=== PATIENT | male | born 1945 | race Caucasian/White ===

== ENCOUNTER 2022-01-25 07:44 | Day surgery (SDC) | payer MEDICARE, OTHER ==
[~2022-01-25] VITALS: Ht 188 cm; Wt 96.2 kg
[~2022-01-25 07:44] MED LIST: ACETAMINOPHEN-118 M1 PO; ACETAMINOPHEN325 M1 PO; ADVAIR HFA 230-12 GM INH; ASPIRIN EC81 MG PO; CLARITIN10 M2 PO; FLOVENT DISKU100 MCG INH; FLUTICASONE PRO16 GM NS; LOVASTATIN40 MG PO; NORCO 5-325 TA1 EACH PO; PRAVACHOL40 MG PO; SINGULAIR10 MG PO; VENTOLIN HFA18 GM; VITAMIN C500 MG PO; VITAMIN D32000 UNIT PO
[2022-01-25] MEDS ORDERED: SYMBICORT 16010.2 GM INH (08:15)
[2022-01-25] MEDS ORDERED: FLONASE SENSIM5.9 ML NAS (08:16)
--- NOTE | 2022-01-25 09:58 | NUR ---
01/25/22 0958 Elsy Anthony 0953- PT TO PACU IN LL POSITION. EYES CLOSED. DOES NOT RESPOND TO VERBAL OR TACTILE STIMULI. BREATHING EASY AND UNLABORED. SPO2 >95% ON 3 L O2 VIA NC. 0957- PT RESPONDS TO VERBAL AND TACTILE STIMULI. OPENS EYES AND FALLS QUICKLY BACK TO SLEEP. BRETHING EASY AND UNLABORED. SPO2 >95% ON 3 L O2 VIA NC.
--- NOTE | 2022-01-25 11:15 | NUR ---
1100: PT BACK TO DS RM 8 FROM PACU DROWSY. PT WAKES WITH VERBAL STIMULATION AND MOVEMENT OF STRETCHER FROM PACU TO DS. PT DENIES NAUSEA, TOLERATES WATER. PT DENIES PAIN. PT HAS URGE TO VOID AND SITS AT SIDE OF BED WITH RN ASSIST. PT STATES, "I AM PRETTY DIZZY AND LIGHTHEADED" AND URINAL IS PROVIDED, PT ENCOURAGED TO SIT WHILE VOIDING WITH RN ASSIST. PT LAYS BACK DOWN, CONT PULSE OXIMETER PLACED AND PT QUICKLY FALLS BACK TO SLEEP. CALL LIGHT WITHIN REACH.
--- NOTE | 2022-01-25 12:06 | NUR ---
PATIENT ASSESSMENT COMPLETE. PATIENT IS STILL DROWSY. BREATHING EQUAL AND UNLABORED. OXYGEN SATURATIONS AND RR WNL ON ROOM AIR. PATIENT DENIES ANY PAIN, NASEAU OR SHORTNESS OF BREATH. SURGICAL SITE CLEAN DRY AND INTACT. IV SITE PATENT. NO QUESTIONS AT THIS TIME. CALL LIGHT WITHIN REACH NO FUTHER NEEDS.
--- NOTE | 2022-01-25 14:33 | NUR ---
1235: THIS RN TRANSPORTS PT FROM DS RM 8 VIA WC TO WAITING IN PERSONAL VEHICLE AT MAIN HOSPITAL ENTRANCE TO HOME.
--- NOTE | 2022-01-26 06:36 | OR ---
[facility] [address], [place] [address] Signed DATE OF OPERATION: 01/25/2022 SURGEON: Gina Lees MD PREOPERATIVE DIAGNOSES: 1. Personal history of colonic polyps in 2016. 2. Tattoo at 8 cm. POSTOPERATIVE DIAGNOSES: 1. Long redundant tortuous colon. 2. Tattoo at 8 cm. PROCEDURE: Colonoscopy biopsy. ESTIMATED BLOOD LOSS: None. 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 He has even helped raise six of his 12 grand children. He still has one grandchild still living at the house. He underwent a negative barium enema back in 1994 at [facility]. He had a negative colonoscopy in [address] Celestino Parrish. I did his colonoscopy in 2005 and he had a benign biopsy of his very prominent ileocecal valve. He did well with Versed and fentanyl. I helped him in 2015 with a colonoscopy and removed three adenomatous polyps and two hyperplastic polyps. We left a tattoo at 8 cm in the right posterior aspect of the rectum. He did well with 10 mg of Versed and 200 mcg of fentanyl at that time. He said he cannot recall the test. However, he did have nausea and vomiting afterwards. Therefore, we decided to give him Zofran and Phenergan preoperatively today. We had asked him to follow up in three years. However, the COVID pandemic took over and he now is just coming back. He does have asthma and he just finished his prednisone and said he is feeling great. He has no lower GI complaints. There is no family history of colon cancer or polyps. I had met with Gisselle in the office and I gave him a pamphlet on colonoscopy. He remembers the test well. There is risk including, but not limited to gas bloating, crampy abdominal pain, bleeding, perforation requiring surgery, and missed diagnosis. He also recalls the need for the IV conscious sedation. He said his would be able to take him home. PROCEDURE NOTE: Electronically Signed By: GINA LEES MD 01/26/22 0636 PATIENT NAME: GISSELLE PHAM OPERATIVE REPORT DATE OF : 41 REPORT #: [id number] PHYSICIAN: GINA LEES MD PCP: IRINEO ACOSTA MD REPORT IS CONFIDENTIAL AND NOT TO BE RELEASED WITHOUT AUTHORIZATION [facility] [address], [place] [address] Signed Gisselle was taken into our endoscopy suite and placed in the left lateral decubitus position. He was given 8 mg of Zofran and 12.5 mg of Phenergan before the procedure. He was given a total of 200 mcg of fentanyl and 10 mg of Versed once again. A digital rectal exam was performed. His prostate gland appears to be absent. He does have a history of prostate cancer and was treated at [place] in [place]. The adult colonoscope had been introduced and advanced through a long tortuous redundant colon. His prep was quite excellent. We could easily see the appendiceal orifice and the ileocecal valve. He has a very prominent circular ileocecal valve. We biopsied that previously and it was negative. The scope had been slowly withdrawn. We found no polyps or diverticulosis throughout the entire colon. The rectum was unremarkable. We did see previous polypectomy sites. We found his tattoo at 8 cm. We looked that area over very carefully. It seems to be quite unremarkable. The scope was then retroflexed in the rectum and there was no additional pathology noted above the anal canal. After this, the gas was suctioned out and the colonoscope removed. Gisselle tolerated the procedure quite well. RECOMMENDATIONS: Gisselle can follow up in 5 years for repeat colonoscopy. He may or may not need propofol infusion in the future, particularly as he is getting older. He was quite somnolent today with the addition of that Phenergan. Gina Lees MD ALB/MODL /[id number] cc: MD Gina Ferrari MD Copies: IRINEO ACOSTA MD, ANDREW L MD ~ Electronically Signed By: GINA LEES MD 01/26/22 0636 PATIENT NAME: GISSELLE PHAM OPERATIVE REPORT DATE OF : 41 REPORT #: [id number] PHYSICIAN: GINA LEES MD PCP: IRINEO ACOSTA MD REPORT IS CONFIDENTIAL AND NOT TO BE RELEASED WITHOUT AUTHORIZATION
== END 2022-01-25 12:35 | disposition home or self-care (01) ==
LOC: DS 07:44 → OPS 07:44 → DS 09:00 → OPS 12:35
PROVIDERS: ATTEND Colon & Rectal Surgery
PROC: 0DJD8ZZ Inspection of Lower Intestinal Tract, Via Natural or Artificial Opening Endoscopic (ICD-10-PCS; principal; 2022-01-25 09:00)
DX: Z09 Encounter for follow-up examination after completed treatment for conditions other than malignant neoplasm (principal); Q43.8 Other specified congenital malformations of intestine; J45.909 Unspecified asthma, uncomplicated; E78.00 Pure hypercholesterolemia, unspecified; Z86.010 Personal history of colon polyps; Z85.46 Personal history of malignant neoplasm of prostate
CPT/HCPCS: 99153; G0500; J2250; J2405; J2550; J3010; J7121

== ENCOUNTER 2025-05-18 19:58 | Emergency (ER) | payer MEDICARE, OTHER ==
[~2025-05-18] VITALS: Ht 188 cm; Wt 92.0 kg
[~2025-05-18 19:58] MED LIST changes: +FLONASE SENSIM5.9 ML NAS; +SYMBICORT 16010.2 GM INH
[2025-05-18] MEDS ORDERED: NITROGLYCERIN PACKET TOP ONE (20:00)
[2025-05-18] MEDS ORDERED: ASPIRIN 81 MG CHEW PO ONE (20:00)
[2025-05-18 20:17] LABS: BASOPHILS 0.5 % (0.2-1.2); EOSINOPHILS 4.6 % (0.8-7.0); HEMATOCRIT 46.7 % (40.1-51.0); HEMOGLOBIN 15.3 g/dL (13.7-17.5); LYMPHOCYTES 16.8 % (21.8-53.1); MCH 30.7 PG (25.7-32.2); MCHC 32.8 g/dL (32.3-36.5); MCV 93.8 fL (79.0-92.2); MONOCYTES 13.9 % (5.3-12.2); NEUTROPHILS 63.6 % (34.0-67.9); PLATELET COUNT 157 K/uL (163-337); RBC 4.98 M/uL (4.63-6.08)
[2025-05-18 20:38] LABS: INR 1.06 (0.80-1.30); PROTIME 13.1 Sec (11.2-14.2)
[2025-05-18 20:43] LABS: ALBUMIN 3.6 g/dL (3.4-5.0); ALBUMIN/GLOBULIN RATIO 0.97 (1.1-2.4); ANION GAP 13.7 (7-21); BILIRUBIN, TOTAL 1.2 mg/dL (0.2-1.0); BUN/CREATININE RATIO 18.05 (6.0-28.6); CALCIUM 8.9 mg/dL (8.5-10.1); CREATININE, SERUM 1.44 mg/dL (0.70-1.30); MAGNESIUM 2.3 mg/dL (1.8-2.4); POTASSIUM 4.7 mmol/L (3.5-5.1); PROTEIN, TOTAL 7.3 g/dL (6.4-8.2)
[2025-05-18] MEDS ORDERED: CEFTRIAXONE SODIUM 2 GM in SODIUM CHLORIDE 0.9% 100 ML IV ONE (22:00)
[2025-05-18] MEDS ORDERED: AZITHROMYCIN 500 MG in DEXTROSE 5% 250 ML IV ONE (22:00)
[2025-05-18] MEDS ORDERED: CEFDINIR300 MG PO (22:26)
[2025-05-18] MEDS ORDERED: AZITHROMYCIN500 MG PO (22:26)
[2025-05-18] MEDS ORDERED: methylPREDNISolone 4 MG HOME.PACK PO ONE (22:30)
[2025-05-19 00:48] VITALS: BP 96/68
--- NOTE | 2025-05-19 19:35 | EKG ---
[facility] [address] [facility] [place] [address] Signed Normal sinus rhythm Left axis deviation Inferior infarct , age undetermined Abnormal ECG Confirmed by Wes Douglas DO ([id number]) on 05/19/2025 7:35:49 PM Electronically Signed By: WES DOUGLAS DO 05/19/251934 PATIENT NAME: PHAMGISSELLE KEI Electrocardiogram DATE OF : 41 PHYSICIAN: WES DOUGLAS DO REPORT #: [id number] REPORT IS CONFIDENTIAL AND NOT TO BE RELEASED WITHOUT AUTHORIZATION
== END 2025-05-19 00:48 | disposition home or self-care (01) ==
LOC: ED 19:58
PROVIDERS: Family Medicine
DX: J18.9 Pneumonia, unspecified organism (principal); J45.909 Unspecified asthma, uncomplicated; Z79.899 Other long term (current) drug therapy
CPT/HCPCS: 36415; 71045; 80053; 83690; 83735; 83880; 84484; 85025; 85379; 85610; 93005; 93010; 96365; 96367; 99285-25; A9270; J0456; J0696; J7060